=== PATIENT | male | born 1965 | race Caucasian/White ===

== ENCOUNTER 2021-01-28 09:43 | Outpatient (REF) | payer OTHER, SELFPAY ==
[2021-01-28 11:13] LABS: MANUAL DIFF FLAG NO
[2021-01-28 11:32] LABS: Basophils Percent Auto 0.5 % (0-2); Eosinophils Absolute Auto 0.1 X10*3/uL (0.0-0.4); Eosinophils Percent Auto 1.4 % (0-4); Hematocrit 45.2 % (42.0-52.0); Hemoglobin 15.5 g/dl (14.0-18.0); Imm Gran Abs Auto 0.02 X10*3/uL (0.00-0.03); Imm Gran Pct Auto 0.2 % (0.0-0.4); Lymphocytes Absolute Auto 2.1 X10*3/uL (1.2-4.9); Lymphocytes Percent Auto 24.3 % (20-40); Mean Corpuscular HGB Conc 34.3 g/dl (31.0-36.0); Mean Corpuscular Hemoglobin 28.9 pg (27.0-33.0); Mean Corpuscular Volume 84.3 fL (80.0-98.0); Mean Platelet Volume 10.2 fL (9.4-12.4); Monocytes Absolute Auto 0.6 X10*3/uL (0.1-1.2); Monocytes Percent Auto 6.9 % (2-11); Neutrophils Absolute Auto 5.9 x10*3/uL (2.0-8.3); Neutrophils Percent Auto 66.7 % (45-73); Platelet Count 280 X10*3/uL (160-400); Red Blood Count 5.36 X10*6/uL (4.60-5.80); Red Cell Distribution Width 13.2 % (11.0-16.0); White Blood Count 8.8 X10*3/uL (4.8-10.8)
[2021-01-28 11:42] LABS: Prothrombin Time 11.1 SEC (9.9-13.0)
[2021-01-28 12:13] LABS: Alanine Aminotransferase 33 U/L (0-40); Albumin Level 4.8 g/dL (3.5-5.0); Alkaline Phosphatase 96 U/L (39-117); Anion Gap 13 (12-20); Aspartate Amino Transferase 28 U/L (5-37); Bilirubin Total 0.7 mg/dL (0.0-1.0); Blood Urea Nitrogen 14 mg/dL (9-16); Calcium 10.3 mg/dL (8.4-10.2); Carbon Dioxide 29 mmol/L (22-29); Chloride 102 mmol/L (96-108); Estimated Glomerular Filt Rate > 60; Glucose Random 121 mg/dL (60-115); Potassium 3.3 mmol/L (3.3-5.1); Sodium 141 mmol/L (135-145); Total Protein 8.2 g/dL (6.5-8.0)
[2021-01-28 12:23] LABS: Erythrocyte Sedimentation Rate 5 MM/HR (0-15)
[2021-01-28 12:37] LABS: Ferritin 129 ng/mL (20-250); Vitamin D 25-OH Total 26.9 ng/mL (>30)
[2021-01-28 12:42] LABS: Folate 14.1 ng/mL (> or = 4.0); Vitamin B12 843 pg/mL (200-900)
[2021-01-29 04:47] LABS: Hepatitis A Antibody IgM 0.19 Index (0-0.79); ~Hepatitis A Antibody IgM Nonreactive (Nonreactive); ~Hepatitis B Surface Antibody NONREACTIVE (Nonreactive)
[2021-01-29 05:11] LABS: HBc Num1 0.13 S/CO (0.00-0.79); HBsAGNum1 0.76 S/CO (0.00-0.99); Hepatitis B Core Antibody Nonreactive (Nonreactive); Hepatitis B Surface Antigen Negative (Negative); ~HepC Num1 15.63 S/CO (0.00-0.79); ~Hepatitis C Antibody Reactive (Nonreactive)
[2021-01-30 12:46] LABS: H Pylori Breath Test Negative (Negative)
[2021-01-30 23:05] LABS: Immunoglobulin G 1418 mg/dL (600-1640)
[2021-01-31 12:31] LABS: Transglutaminase Ab IgG <1.0 U/mL; Transglutaminase IgA <1.0 U/mL
[2021-01-31 23:36] LABS: Zinc 73 mcg/dL (60-130)
[2021-02-01 07:47] LABS: Gliadin Deamidated IgA Ab <1.0 U/mL; Gliadin Deamidated IgG Ab <1.0 U/mL
[2021-02-01 12:36] LABS: Vitamin C 0.5 mg/dL (0.2-2.1)
[2021-02-01 14:06] LABS: Vitamin A 50 mcg/dL (38-98)
[2021-02-01 15:06] LABS: Vitamin B6 6.8 ng/mL (2.1-21.7)
[2021-02-03 17:57] LABS: Vitamin B5 (Pantothenic Acid) 85 ng/mL (<275)
[2021-02-03 18:46] LABS: HCV Genotype PCR Not Detected
[2021-02-04 13:41] LABS: Nicotinamide <20 ng/mL; Vit B3 - Nicotinic Acid <20 ng/mL
== END 2021-01-28 09:44 | disposition home or self-care (01) ==
LOC: HO.LAB 09:43
PROVIDERS: PCP Internal Medicine; Visit Provider Internal Medicine Gastroenterology
DX: B18.2 Chronic viral hepatitis C (principal); K21.9 Gastro-esophageal reflux disease without esophagitis; K63.5 Polyp of colon; K52.839 Microscopic colitis, unspecified; K75.81 Nonalcoholic steatohepatitis (NASH); G89.29 Other chronic pain; R10.33 Periumbilical pain
CPT/HCPCS: 36415; 80053; 82180; 82306; 82607; 82728; 82746; 82784; 83013; 83516; 84207; 84590; 84591; 84630; 85025; 85610; 85652; 86704; 86706; 86709; 86803; 87340; 99202

== ENCOUNTER 2021-05-20 09:25 | Day surgery (SDC) | payer OTHER, SELFPAY ==
--- NOTE | 2021-05-19 12:29 | P.CONAN_ITS ---
Documented by User: Josseline Lee NP 05/19/21 12:30 HPI - Anesthesia Eval Consult details Narrative: 55yo M for Upper Endoscopy and Colonoscopy [facility] Active Problems Active Problems: All Active Problems (Updated 05/14/21 @ 14:25 by Martha Carlos, REDDY) Hep C w/o coma, chronic (Acute) Chronic GERD (Acute) Colon polyps (Acute) Turcot syndrome (Acute) Past Medical History Medical History Anxiety and depression Chronic low back pain with sciatica Hepatitis C History of alcohol abuse HTN (hypertension) Hyperlipidemia Left frontal lobe mass Oligodendroglioma of frontal lobe Surgical History Surgical History History of craniotomy Hx of colonoscopy S/P excision of vocal cord nodule Social History Social History Are you a primary district manager primary care sales to a significant other at home: No Do you presently have visiting nurse or other home services: No Patient Tobacco Use Status: Former Tobacco user Quit Date: quit 4 yrs ago Tobacco use type: Cigarette Second Hand Smoke Exposure: No Use of substances other than those prescribed or required for medical reasons: No Are you DNR?: No Advance Directives: No Advance Directives Information Provided: Yes Recently lost weight without trying: No Eating poorly because of decreased appetite: No Nutrition Risks: No Nutritional Risk Meds Allergies Allergy/AdvReac Type Severity Reaction Status Date / Time No Known Allergies Allergy Verified 05/14/21 14:14 Home Medications Medication Instructions Recorded Confirmed Last Taken Type amlodipine 10 mg tablet 1 tab PO DAILY 05/14/21 05/14/21 Unknown History atorvastatin 40 mg tablet 1 tab PO DAILY 05/14/21 05/14/21 Unknown History fluoxetine 10 mg capsule 1 cap PO DAILY 05/14/21 05/14/21 Unknown History hydrochlorothiazide 25 mg tablet 1 tab PO DAILY 05/14/21 05/14/21 Unknown History losartan 100 mg tablet 1 tab PO DAILY 05/14/21 05/14/21 Unknown History naproxen 500 mg tablet 1 tab PO BID 05/14/21 05/14/21 Unknown History omeprazole 20 mg capsule,delayed 1 cap PO DAILY 05/14/21 05/14/21 Unknown History release Exam Exam Date and Time: May 19, 2021 1229 Pertinent Lab Results Pertinent Lab Results: Laboratory Tests 01/28/21 01/28/21 11:10 11:10 WBC 8.8 Hgb 15.5 Hct 45.2 Plt Count 280 Sodium 141 Potassium 3.3 Chloride 102 Carbon Dioxide 29 BUN 14 Creatinine 1.11 Assessment and Plan Assessment Anesthesia Assessment: Chart Reviewed Documented by User: Maryan Ngo MD 05/20/21 10:17 PMFSH Past Medical History Medical History Anxiety and depression Chronic low back pain with sciatica Hepatitis C History of alcohol abuse HTN (hypertension) Hyperlipidemia Left frontal lobe mass Oligodendroglioma of frontal lobe Surgical History Surgical History History of craniotomy Hx of colonoscopy S/P excision of vocal cord nodule History of Problems with Anesthesia: No Social History Social History Are you a primary district manager primary care sales to a significant other at home: No Do you presently have visiting nurse or other home services: No Patient Tobacco Use Status: Former Tobacco user Quit Date: quit 4 yrs ago Tobacco use type: Cigarette Second Hand Smoke Exposure: No Use of substances other than those prescribed or required for medical reasons: No Are you DNR?: No Advance Directives: No Advance Directives Information Provided: Yes Recently lost weight without trying: No Eating poorly because of decreased appetite: No Nutrition Risks: No Nutritional Risk Meds Allergies Allergy/AdvReac Type Severity Reaction Status Date / Time No Known Allergies Allergy Verified 05/14/21 14:14 Home Medications Medication Instructions Recorded Confirmed Last Taken Type amlodipine 10 mg tablet 1 tab PO DAILY 05/14/21 05/14/21 Unknown History atorvastatin 40 mg tablet 1 tab PO DAILY 05/14/21 05/14/21 Unknown History fluoxetine 10 mg capsule 1 cap PO DAILY 05/14/21 05/14/21 Unknown History hydrochlorothiazide 25 mg tablet 1 tab PO DAILY 05/14/21 05/14/21 Unknown History losartan 100 mg tablet 1 tab PO DAILY 05/14/21 05/14/21 Unknown History naproxen 500 mg tablet 1 tab PO BID 05/14/21 05/14/21 Unknown History omeprazole 20 mg capsule,delayed 1 cap PO DAILY 05/14/21 05/14/21 Unknown History release Exam Airway Mallampati Class: III TM Dist: >3cm Neck ROM: Full Loose/Missing/Broken Teeth: No Heart: RRR Lungs: CTA Assessment and Plan Assessment Anesthesia Assessment: Anesthesia Plan Discussed Final Anesthetic Review History of Problems with Anesthesia: No NPO: Yes ASA Class: II Final Preanesthetic Review: Meds/Allgs Chart Reviewed, Consent Obtained/Reviewed and Anes Risks/Benef Reviewed Patient Risk: Low Procedure Risk: Intermediate Anesthetic Plan Anesthetic Plan: MAC: Disposition: Standard PACU
[2021-05-20 09:56] VITALS: BP 132/92; PULSE 90; RESP 16; TEMP 37.1; O2SAT 98; BMI 29.0
[2021-05-20] MEDS: Lactated Ringers 1,000 ML 100 ML IVCONT (10:02)
--- NOTE | 2021-05-20 10:08 | MHC.SHP ---
Pre-Procedural Eval Section A Date of Service: 05/20/21 Section B Chief Complaint: Colon Polyp, Chronic GERD Relevant Family History (Specify if Yes): No Relevant Social History: None Present Medications: see Short Stay Collaborative assessment Medical History: Significant History (Anxiety and depression Chronic low back pain with sciatica Hepatitis C History of alcohol abuse HTN (hypertension) Hyperlipidemia Left frontal lobe mass Oligodendroglioma of frontal lobe) History of Previous Operations: Relevant previous surgery/procedure and date(s) (History of craniotomy Hx of colonoscopy S/P excision of vocal cord nodule) Allergies: Allergies Allergy/AdvReac Type Severity Reaction Status Date / Time No Known Allergies Allergy Verified 05/14/21 14:14 Review of Systems Sugical H&P ROS: Negative: Constitution, Cardiovascular, Respiratory, Neurological, Psychiatric, Hem-Onc, Allergic/Immunologic, Gastrointestinal, Genitourinary, Musculoskeletal, Integumentary, Endocrine and Eyes/Ears/Nose/Throat Exam Surgical H&P Exam: Normal: HEENT, Normal: Heart, Normal: Lungs, Normal: Extremities, Normal: Abdomen, Normal: Skin and Normal: Neurological Plan Diagnosis/Plan: Unchanged I have reviewed the history and physical and performed a pertinent physical examination on my patient. No changes have occurred unless specified.
--- NOTE | 2021-05-20 10:49 | P.BOP_ITS ---
Brief Operative Note Date of Service: 05/20/21 Pre-op diagnosis: hx of polyps, nausea Post-op diagnosis: same Procedure: see op note Surgeon: Fernando Fitzgerald MD Anesthesia: MAC Was an Electrical Controls Engineer used for this Procedure?: No Estimated blood loss (mL): 0 Condition: stable Disposition: PACU
--- NOTE | 2021-05-20 10:50 | P.OP_ITS ---
Operative Note Operative Note Date of Service: 05/20/21 Narrative: Operative Information Procedure Description: EGD, Colonoscopy FLEXIBLE TRANSORAL UPPER GASTROINTESTINAL ENDOSCOPY AND COLONOSCOPY PROCEDURE NOTE UPPER ENDOSCOPY Consent: Indications for the procedure and potential complications of bleeding, perforation, reaction to medications and missed diagnosis were discussed with the patient and informed consent was obtained. Instrument: Olympus GIF H 190 J mid size upper endoscope Monitoring: Vital signs and clinical assessment, continuous EKG monitoring, Pulse oximetry, Carbon Dioxide monitoring and blood pressure monitoring were done throughout the procedure. Procedure: The patient was placed in the left lateral decubitis position and pre-procedure medications were administered and a bite block was placed. The endoscope was inserted into the mouth and advanced under direct vision to the third part of duodenum. A careful inspection was made as the upper endoscope was withdrawn including a retroflexed examination of the proximal stomach; Findings and interventions are described below. Findings: Larynx:normal Esophagus: GE junction at 36 cm, diaphragm hiatus at 39 cm, consistent with 3 cm sliding hiatal hernia, streaky erosions noted in distal esophagus at GEJ consistent with LA grade B erosive esophagitis Stomach: erythema and erosions at the antrum. Biopsies were obtained. Grade 2 f lap valve on retroflexed examination of the cardia. Duodenum: moderate severe erythema and edema consistent with duodenitis in bulb, bx taken Intervention: Biopsies as noted above COLONOSCOPY Instrument: Olympus variable stiffness adul scope [id number] Colonoscopy Monitoring: Vital signs and clinical assessment, continuous EKG monitoring, Pulse oximetry, Carbon Dioxide monitoring and blood pressure monitoring were done throughout the procedure. Colon withdrawal time was 8 minutes. Procedure: The patient was placed in the left lateral decubitis position and pre-procedure medications were administered. After a digital rectal examination of the ano-rectum, the video colonoscope was inserted into the rectum and advanced through the colon to the cecum/TI. The colonoscope was slowly withdrawn in a retrograde panoramic fashion and the colon mucosa was carefully examined including a retroflexed view of the rectum. Findings and interventions are described below. Procedure Difficulty: easy Findings: Terminal Ileum-normal Right sided retroflexion was normal Cecum:normal Ascending Colon: normal Transverse Colon -normal Descending Colon:normal Sigmoid Colon: normal Rectum: Retroflexion with moderate sized internal hemorrhoids, grade II Anorectum - internal hemorrhoids seen at anal verge Colon preparation: [place] Bowel Preparation Scale Right colon; 3 Transverse colon: 3 Left colon; 3 (0 = Unprepared colon segment with mucosa not seen due to solid stool that cannot be cleared. 1 = Portion of mucosa of the colon segment seen, but other areas of the colon segment not well seen due to staining, residual stool and/or opaque liquid. 2 = Minor amount of residual staining, small fragments of stool and/or opaque liquid, but mucosa of colon segment seen well. 3 = Entire mucosa of colon segment seen well with no residual staining, small fragments of stool or opaque liquid) Impression and Post Procedure Diagnosis: Endoscopy Findings: hiatal hernia duodenitis erosive gastritis erosive esophagitis Colonoscopy Findings: polyp internal hemorrhoids Plan: Await Pathology results Repeat Colonoscopy in 2-3 years or earlier if clinically indicated High fiber diet leaflet avoid straining at stool, epsom salts and sitz bath, anusol supps or cream confirm nsaid hx and compliance with PPI If H pylori pos then treat refer for genetic testing for Turcot syndrome Above findings were reviewed with the patient and relevant handouts were provided if indicated.
[2021-05-20 10:55] VITALS: BP 147/96; PULSE 110; RESP 20; TEMP 36.7; O2SAT 95
[2021-05-20 11:11] VITALS: BP 141/94; PULSE 83; RESP 16; TEMP 36.7; O2SAT 97
== END 2021-05-20 11:41 | disposition home or self-care (01) ==
PROVIDERS: PCP Internal Medicine; Visit Provider Internal Medicine Gastroenterology
PROC: (CPT 45385; principal; 2021-05-20 11:00)
DX: Z12.11 Encounter for screening for malignant neoplasm of colon (principal); Z86.010 Personal history of colon polyps; D12.3 Benign neoplasm of transverse colon; K64.1 Second degree hemorrhoids; K21.9 Gastro-esophageal reflux disease without esophagitis; K20.80 Other esophagitis without bleeding; K29.50 Unspecified chronic gastritis without bleeding; K29.80 Duodenitis without bleeding; K44.9 Diaphragmatic hernia without obstruction or gangrene; F10.11 Alcohol abuse, in remission; I10 Essential (primary) hypertension; E78.5 Hyperlipidemia, unspecified; B19.20 Unspecified viral hepatitis C without hepatic coma; G89.4 Chronic pain syndrome; M54.40 Lumbago with sciatica, unspecified side; Z79.82 Long term (current) use of aspirin; Z79.1 Long term (current) use of non-steroidal anti-inflammatories (NSAID); Z98.890 Other specified postprocedural states; Z87.891 Personal history of nicotine dependence
CPT/HCPCS: 45385; 43239; 88305; 88342

== ENCOUNTER → 2021-06-30 09:04 | Outpatient (BNVA) | payer OTHER, SELFPAY | PROVIDERS: PCP Internal Medicine; Visit Provider Internal Medicine Gastroenterology | DX: Z13.89 Encounter for screening for other disorder (principal) | CPT/HCPCS: Q3014 ==

== ENCOUNTER → 2021-07-29 13:14 | Outpatient (BNVA) | payer OTHER, SELFPAY | PROVIDERS: PCP Internal Medicine; Visit Provider Internal Medicine Gastroenterology | DX: Z85.841 Personal history of malignant neoplasm of brain (principal); Z80.0 Family history of malignant neoplasm of digestive organs; Z80.42 Family history of malignant neoplasm of prostate | CPT/HCPCS: 99211 ==

== ENCOUNTER 2022-07-24 11:13 | Outpatient (REF) | payer OTHER, SELFPAY ==
[2022-07-24 13:07] LABS: Basophils Percent Auto 0.4 % (0-2); Eosinophils Absolute Auto 0.1 X10*3/uL (0.0-0.4); Eosinophils Percent Auto 1.4 % (0-4); Hematocrit 43.4 % (42.0-52.0); Hemoglobin 14.9 g/dl (14.0-18.0); Imm Gran Abs Auto 0.03 X10*3/uL (0.00-0.03); Imm Gran Pct Auto 0.3 % (0.0-0.4); Lymphocytes Absolute Auto 2.2 X10*3/uL (1.2-4.9); Lymphocytes Percent Auto 21.4 % (20-40); MANUAL DIFF FLAG NO; Mean Corpuscular HGB Conc 34.3 g/dl (31.0-36.0); Mean Corpuscular Hemoglobin 29.2 pg (27.0-33.0); Mean Corpuscular Volume 84.9 fL (80.0-98.0); Mean Platelet Volume 10.8 fL (9.4-12.4); Monocytes Absolute Auto 0.7 X10*3/uL (0.1-1.2); Monocytes Percent Auto 7.3 % (2-11); Neutrophils Percent Auto 69.2 % (45-73); Platelet Count 283 X10*3/uL (160-400); Red Blood Count 5.11 X10*6/uL (4.60-5.80); Red Cell Distribution Width 13.4 % (11.0-16.0); White Blood Count 10.1 X10*3/uL (4.8-10.8)
[2022-07-24 13:54] LABS: Erythrocyte Sedimentation Rate 7 MM/HR (0-15)
[2022-07-24 13:56] LABS: Alanine Aminotransferase 20 U/L (0-40); Albumin Level 4.5 g/dL (3.5-5.0); Alkaline Phosphatase 89 U/L (39-117); Anion Gap 14 (12-20); Aspartate Amino Transferase 27 U/L (5-37); Bilirubin Total 0.7 mg/dL (0.0-1.0); Blood Urea Nitrogen 18 mg/dL (9-16); Calcium 9.8 mg/dL (8.4-10.2); Carbon Dioxide 27 mmol/L (22-29); Chloride 103 mmol/L (96-108); Estimated Glomerular Filt Rate > 60; Glucose Random 100 mg/dL (60-115); Sodium 140 mmol/L (135-145); Total Protein 7.6 g/dL (6.5-8.0)
[2022-07-24 14:27] LABS: Ferritin 125 ng/mL (20-250); Folate 14.7 ng/mL (> or = 4.0); TSH reflex Free T4 0.47 uIU/mL (0.32-4.0); Vitamin B12 643 pg/mL (200-900); Vitamin D 25-OH Total 45.5 ng/mL (>30)
[2022-07-29 01:33] LABS: Zinc 66 mcg/dL (60-130)
[2022-07-30 04:37] LABS: Alpha-Tocopherol 10.8 mg/L (5.7-19.9); Beta-Gamma Tocopherol 1.1 mg/L (<=4.3); Vitamin A 53 mcg/dL (38-98)
[2022-07-30 17:19] LABS: Vitamin K1 316 pg/mL (130-1500)
[2022-07-31 13:33] LABS: Vitamin B1 9 nmol/L (8-30)
[2022-07-31 15:09] LABS: Vitamin B6 14.7 ng/mL (2.1-21.7)
[2022-08-01 20:34] LABS: Vitamin C 0.1 mg/dL (0.2-2.1)
[2022-08-03 19:18] LABS: Nicotinamide 22 ng/mL; Vit B3 - Nicotinic Acid <20 ng/mL
[2022-08-03 19:48] LABS: Vitamin B5 (Pantothenic Acid) 51 ng/mL (<275)
== END 2022-07-24 11:14 | disposition home or self-care (01) ==
LOC: HO.LAB 11:13
PROVIDERS: PCP Student in an Organized Health Care Education/Training Program; Visit Provider Internal Medicine Gastroenterology
DX: Z01.818 Encounter for other preprocedural examination (principal); K75.81 Nonalcoholic steatohepatitis (NASH); B18.2 Chronic viral hepatitis C; K21.9 Gastro-esophageal reflux disease without esophagitis; K63.5 Polyp of colon; F41.9 Anxiety disorder, unspecified; Z72.820 Sleep deprivation
CPT/HCPCS: 36415; 80053; 82180; 82306; 82607; 82728; 82746; 84207; 84425; 84443; 84446; 84590; 84591; 84597; 84630; 85025; 85652; 99212

== ENCOUNTER 2022-07-27 11:44 | Outpatient (REF) | payer OTHER, SELFPAY ==
[2022-07-28 19:59] LABS: HCV Log PCR <1.18 NOT DETECTED Log IU/mL (NOT DETECTED); HepC Viral Load <15 NOT DETECTED IU/mL (NOT DETECTED)
== END 2022-07-27 11:45 | disposition home or self-care (01) ==
LOC: HO.LAB 11:44
PROVIDERS: Visit Provider Internal Medicine Gastroenterology
DX: B18.2 Chronic viral hepatitis C (principal); F41.9 Anxiety disorder, unspecified; K21.9 Gastro-esophageal reflux disease without esophagitis; K63.5 Polyp of colon; Z72.820 Sleep deprivation
CPT/HCPCS: 36415; 87522